=== PATIENT | male | born 1990 | race Caucasian/White ===

== ENCOUNTER 2019-08-18 09:20 | Emergency (ER) | payer OTHER ==
[~2019-08-18] VITALS: Ht 182.9 cm; Wt 79.5 kg
[2019-08-18] MEDS ORDERED: LIDOCAINE 2%/EPI 1:200,000/PF 20 ML VIAL INJ ONE (09:30)
[2019-08-18 09:32] VITALS: BP 150/100
[2019-08-18] MEDS ORDERED: LIDOCAINE 2%/EPI 1:200,000/PF 10 ML VIAL INJ ONE (10:00)
[2019-08-18] MEDS ORDERED: LIDOCAINE/PF 2% 5 ML VIAL INJ ONE (10:30)
[2019-08-18] MEDS ORDERED: PERTUSS(ACELL),DIPH,TET VAC/PF 0.5 ML VIAL IM ONE (11:00)
[2019-08-18] MEDS ORDERED: KETOROLAC TROMETHAMINE 30 MG/ML VIAL IM ONE (13:15)
== END 2019-08-18 14:55 | disposition home or self-care (01) ==
LOC: EMS 09:22
DX: S62.522A Displaced fracture of distal phalanx of left thumb, initial encounter for closed fracture (principal); S61.112A Laceration without foreign body of left thumb with damage to nail, initial encounter; F17.210 Nicotine dependence, cigarettes, uncomplicated; Z98.890 Other specified postprocedural states; W26.8XXA Contact with other sharp object(s), not elsewhere classified, initial encounter; Y93.89 Activity, other specified; Y92.69 Other specified industrial and construction area as the place of occurrence of the external cause; Y99.0 Civilian activity done for income or pay
CPT/HCPCS: 12001; 73130; 90471; 90715; 96372; 99283; J1885; J3490